=== PATIENT | male | born 1975 | race African-American/Black ===

== ENCOUNTER 2022-09-24 20:30 | Emergency (ER) | payer OTHER ==
[2022-09-24 20:50] VITALS: RESP 20; TEMP 98.1
[2022-09-24] MEDS ORDERED: KETOROLAC 15 MG/ML 1 ML VIAL IM STA (22:51)
--- NOTE | 2022-09-24 23:17 | ED ---
ENT HPI - General Chief complaint: ENT Stated complaint: swelling in neck Time Seen by Provider: 09/24/22 22:29 Source: patient Mode of arrival: ambulatory Limitations: no limitations - History of Present Illness Initial comments: 47-year-old male presents to the ED with a chief complaint of sore throat. States onset today. Since onset, reports worsening pain and now notes he is having significant difficulty swallowing secondary to the pain. Notes that he does not have any pain medication at home. No other complaints. - Related Data Previous Rx's Medication Instructions Recorded Acetaminophen Tab [Tylenol] 500 mg PO Q6H PRN #20 tablet 09/24/22 Ibuprofen [Motrin] 600 mg PO Q8HR PRN #20 tab 09/24/22 Allergies Allergy/AdvReac Type Severity Reaction Status Date / Time trazodone AdvReac Unknown Verified 09/24/22 20:50 Review of Systems ROS Statement: Those systems with pertinent positive or pertinent negative responses have been documented in the HPI. ROS Other: All systems not noted in ROS Statement are negative. Past Medical History Past Medical History: Hypertension History of Any Multi-Drug Resistant Organisms: None Reported Past Surgical History: No Surgical Hx Reported Past Psychological History: Bipolar, Depression Smoking Status: Current every day smoker Past Alcohol Use History: Rare Past Drug Use History: Cocaine General Exam Limitations: no limitations General appearance: alert ENT exam: Present: other (No exudate. No obvious evidence of peritonsillar abscess.) Neck exam: Present: other (Swelling and tenderness to palpation of the anterior neck.) Respiratory exam: Present: normal lung sounds bilaterally, respiratory distress Cardiovascular Exam: Present: regular rate Neurological exam: Present: alert, oriented X3 Skin exam: Present: warm, dry Course Vital Signs 09/24/22 20:48 Temperature 98.1 F Pulse Rate 104 H Respiratory 20 Rate Blood Pressure 122/74 O2 Sat by Pulse 96 Oximetry Medical Decision Making - Medical Decision Making Was pt. sent in by a medical professional or institution (, PA, STRATEGY SPECIALIST, urgent care, hospital, or senior care...) When possible be specific @ -No Did you speak to anyone other than the patient for history (EMS, parent, family, police, friend...)? What history was obtained from this source @ -No Did you review nursing and triage notes (agree or disagree)? Why? @ -I reviewed and agree with nursing and triage notes Were old charts reviewed (outside hosp., previous admission, EMS record, old EKG, old radiological studies, urgent care reports/EKG's, senior care records)? Report findings @ -No old charts were reviewed Differential Diagnosis (chest pain, altered mental status, abdominal pain women, abdominal pain men, vaginal bleeding, weakness, fever, dyspnea, syncope, headache, dizziness, GI bleed, back pain, seizure, CVA, palpatations, mental health, musculoskeletal)? @ -Peritonsillar abscess, retropharyngeal abscess, pharyngitis. Not meant to be an all-inclusive list. EKG interpreted by me (3pts min.). @ -None X-rays interpreted by me (1pt min.). @ -X-ray soft tissue obtained interpreted by me no evidence of significant prevertebral swelling. CT interpreted by me (1pt min.). @ -None done U/S interpreted by me (1pt. min.). @ -None done What testing was considered but not performed or refused? (CT, X-rays, U/S, labs)? Why? @ -None What meds were considered but not given or refused? Why? @ -None Did you discuss the management of the patient with other professionals (professionals i.e. , PA, STRATEGY SPECIALIST, lab, RT, psych nurse, social group worker, tank riveter, teacher, aoc [employer] operations staff officer, egg caser)? Give summary @ -No Was smoking cessation discussed for >3mins.? @ -No Was critical care preformed (if so, how long)? @ -No Were there social determinants of health that impacted care today? How? (Homelessness, low income, unemployed, alcoholism, drug addiction, transportation, low edu. Level, literacy, decrease access to med. care, longterm, rehab)? @ -No Was there de-escalation of care discussed even if they declined (Discuss DNR or withdrawal of care, Hospice)? DNR status @ -No What co-morbidities impacted this encounter? (DM, HTN, Smoking, COPD, CAD, Cancer, CVA, ARF, Chemo, Hep., AIDS, mental health diagnosis, sleep apnea, morbid obesity)? @ -None Was patient admitted / discharged? Hospital course, mention meds given and route, prescriptions, significant lab abnormalities, going to OR and other pertinent info. @ -Discharge. X-ray interpreted by me shows no evidence of retropharyngeal abscess. Patient provided Toradol here with significant improvement of the pain. Patient now reports that he is able to swallow food with minimal difficulty. Symptoms likely viral in nature. Provided prescription for acetaminophen and ibuprofen. Discussed return precautions with patient who verbalizes agreement. Undiagnosed new problem with uncertain prognosis? @ -No Drug Therapy requiring intensive monitoring for toxicity (Heparin, Nitro, Insulin, Cardizem)? @ -No Were any procedures done? @ -No Diagnosis/symptom? @ -Pharyngitis Acute, or Chronic, or Acute on Chronic? @ -Acute Uncomplicated (without systemic symptoms) or Complicated (systemic symptoms)? @ -Uncomplicated Side effects of treatment? @ -No Exacerbation, Progression, or Severe Exacerbation? @ -No Poses a threat to life or bodily function? How? (Chest pain, [place], MA, pneumonia, PE, COPD, DKA, ARF, appy, cholecystitis, CVA, Diverticulitis, Homicidal, Suicidal, threat to staff... and all critical care pts) @ -No Disposition Clinical Impression: Pharyngitis Disposition: HOME SELF-CARE Condition: Good Instructions (If sedation given, give patient instructions): Pharyngitis (ED) Additional Instructions: Please return to the Emergency Department if symptoms worsen or any other concerns. Prescriptions: Ibuprofen [Motrin] 600 mg PO Q8HR PRN #20 tab PRN Reason: Pain Acetaminophen Tab [Tylenol] 500 mg PO Q6H PRN #20 tablet PRN Reason: Pain Is patient prescribed a controlled substance at d/c from ED?: No Referrals: None,Stated [Primary Care Provider] - 1-2 days Time of Disposition: 23:49
[2022-09-25 00:27] VITALS: BP 134/87; PULSE 108
--- NOTE | 2022-09-25 00:40 | XR ---
EXAM: XR Soft Tissue Neck CLINICAL HISTORY: ITS.REASON XR Reason: r/o abscess TECHNIQUE: Frontal and lateral views of the soft tissues of the neck. COMPARISON: No previous studies. FINDINGS: Airway: Airway is grossly unremarkable. Bones/joints: Unremarkable. Normal alignment of the cervical spine. Soft tissues: Prevertebral soft tissues are unremarkable. Soft tissues are grossly unremarkable. Normal epiglottis. IMPRESSION: 1. Unremarkable plain film evaluation. 2. If there is a high degree of concern, CT imaging of the soft tissues neck with contrast administration should be performed for follow-up for further assessment.
== END 2022-09-25 00:27 | disposition home or self-care (01) ==
LOC: EC 20:30
DX: J02.9 Acute pharyngitis, unspecified (principal); I10 Essential (primary) hypertension; F17.200 Nicotine dependence, unspecified, uncomplicated; F14.90 Cocaine use, unspecified, uncomplicated; Z88.8 Allergy status to other drugs, medicaments and biological substances
CPT/HCPCS: 70360; 99283; 96372; J1885